=== PATIENT | female | born 1940 | race Caucasian/White ===

== ENCOUNTER 2021-03-22 12:28 | Emergency (ER) | payer MEDICARE ==
[~2021-03-22] VITALS: Ht 157.5 cm; Wt 77.1 kg
[2021-03-22 12:30] VITALS: BP_SYST 149
[2021-03-22 13:06] LABS: BASOPHILS % (AUTO) 0.6 % (0.0-2.0); EOSINOPHILS # (AUTO) 0.1 K/uL (0.0-0.4); EOSINOPHILS % (AUTO) 2.1 % (0.0-4.0); HEMATOCRIT 22.1 % (36-48); HEMOGLOBIN 7.5 g/dL (12.0-16.0); LYMPHOCYTES # (AUTO) 1.2 K/uL (1.0-5.5); LYMPHOCYTES % (AUTO) 23.9 % (20.5-51.5); MEAN CORPUSCULAR HEMOGLOBIN 32 pg (27-31); MEAN CORPUSCULAR HGB CONC 34 % (32-36); MEAN CORPUSCULAR VOLUME 94 fL (79.0-98.0); MONOCYTES # (AUTO) 0.4 K/uL (0.0-1.0); MONOCYTES % (AUTO) 8.4 % (1.7-9.3); NEUTROPHILS # (AUTO) 3.2 K/uL (1.8-7.7); PLATELET COUNT (AUTO) 212 K/uL (130-430); RED BLOOD CELL COUNT(AUTO) 2.35 MIL/uL (4.2-6.2); RED CELL DISTRIBUTION WIDTH 30.5 % (9.0-15.0); WHITE BLOOD COUNT (AUTO) 4.9 K/uL (4.8-10.8)
[2021-03-22 13:19] LABS: ANION GAP 6 (5-15); CALCIUM 9.3 mg/dL (8.4-11.0); CHLORIDE 99 mmol/L (98-107); CREATININE 1.12 mg/dL (0.55-1.30); GLUCOSE 138 mg/dL (70-99); POTASSIUM 4.9 mmol/L (3.5-5.1); SODIUM SERUM 135 mmol/L (136-145); UREA NITROGEN, BLOOD 29 mg/dL (8-21)
[2021-03-22 13:21] LABS: INR 1.1 (0.8-1.2)
[2021-03-22 13:25] LABS: ALANINE AMINOTRANSFERASE 73 U/L (12-78); ALBUMIN 3.5 g/dL (3.4-4.8); ASPARTATE AMINOTRANSFERASE 31 U/L (10-37); TOTAL BILIRUBIN 0.5 mg/dL (0.0-1.0)
--- NOTE | 2021-03-22 14:34 | NUR ---
UP TO COMODE DENIES DIZZYNESS URINE TO LAB
[2021-03-22 14:51] LABS: BILIRUBIN,URINE NEGATIVE (NEGATIVE); BLOOD, URINE NEGATIVE (NEGATIVE); COLOR,URINE YELLOW (YELLOW); GLUCOSE,URINE NEGATIVE (NEGATIVE); KETONES,URINE TRACE (NEGATIVE); LEUKOCYTE ESTERASE ,URINE NEGATIVE (NEGATIVE); NITRITE, URINE NEGATIVE (NEGATIVE); PH,URINE 5.5 (5.0-8.0); PROTEIN URINE NEGATIVE (NEGATIVE); UROBILINOGEN,URINE 0.2 (0.2-1.0)
[2021-03-22 15:02] LABS: CLARITY/URINE CLEAR (CLEAR)
--- NOTE | 2021-03-22 15:28 | NUR ---
BLOOD CONSENT SIGNED
[2021-03-22] MEDS ORDERED: NACL 0.9% 1,000 ML IV ONE (15:30)
--- NOTE | 2021-03-22 15:37 | NUR ---
Dr. Anthony, [facility] Doc, called back to speak to Dr. Pratt regarding pt status.
--- NOTE | 2021-03-22 16:38 | NUR ---
VSS PT VOICES NO COMPLAINTS
[2021-03-22] MEDS ORDERED: ACETAMINOPHEN 500 MG TABLET PO ONE (17:30)
[2021-03-22] MEDS ORDERED: HYDROcodone/ACETAMIN 10-325 MG TAB PO ONE (17:30)
--- NOTE | 2021-03-22 18:06 | NUR ---
ambulated to br with steady gait
--- NOTE | 2021-03-22 18:53 | NUR ---
Consent signed per patient agreeing to administration of blood. Blood has been type and crossmatched. Blood sent from blood bank. Information on unit of blood checked against patient wristband at bedside by two nurses. All information matches. Patient or responsible democrat informed of potential complications associated with blood transfusion. Informed of possible transfusion reaction symptoms. Aware of need to notify nurse at once of itching, shortness of breath, flushing, feeling of impending doom, or other symptoms not previously present. Vital signs taken within 5 minutes prior to initiation of transfusion. RN will remain with patient for first 15 minutes of transfusion at which time vital signs will be re-assessed.
--- NOTE | 2021-03-22 19:10 | NUR ---
Pt report received. Pt AAOx4, denies c/o pain or discomfort, no needs verbalized at this time. PRBC transfusion in progress at 125 mL/hr to patent and secure 18 GA PIV RFA. No s/s transfustion reaction noted. NAD noted. Pt on bedside radiology technician with VSS. Family member at bedside.
--- NOTE | 2021-03-22 21:45 | NUR ---
Blood transfusion complete. Denies c/o pain or discomfort, no s/s transfusion reaction. V/S: 98.7, 85, 18, 150/68, SPO2 98% RA.
--- NOTE | 2021-03-22 22:27 | NUR ---
Patient to be transferred to [place]. Is being transferred due to higher level of care. Receiving facility has accepting physician and available space. ER physician has signed transfer form. Patient or responsible constitution party has agreed to transfer and signed form. Patient belongings inventoried and will be sent with patient. Copy of nursing notes, lab reports, EKG, Physicians Orders and X-rays to be sent with patient. Report called to DIANA Cordero at receiving facility. Receiving physician is Dr. Beckwith. Pt leaves in [facility] in stable condition.
[2021-03-22 22:28] VITALS: BP_SYST 122
== END 2021-03-22 22:27 | disposition short-term general hospital (02) ==
LOC: SED 12:28
DX: R55 Syncope and collapse (principal); D64.9 Anemia, unspecified; Z20.822 Contact with and (suspected) exposure to COVID-19
CPT/HCPCS: 36415; 36430; 71045; 80053; 81003; 84484; 85025; 85610; 85730; 86886; 86900; 86901; 86920; 87426; 93005; 96360; 99285; J7030; P9021